=== PATIENT | female | born 1970 | race Caucasian/White ===

== ENCOUNTER → 2020-03-20 10:44 | Outpatient (CLI) | payer OTHER, MEDICAID, SELFPAY ==
[2020-03-20] MEDS: COVID-19 VACC(MODERNA-1)/PF 100 MCG/0.5 ML VIAL IM (10:50)
== END ==
PROVIDERS: Visit Provider Internal Medicine
DX: Z23 Encounter for immunization (principal)
CPT/HCPCS: 0011A; 91301

== ENCOUNTER → 2020-04-17 10:54 | Outpatient (CLI) | payer OTHER, MEDICAID, SELFPAY ==
[2020-04-17] MEDS: COVID-19 VACC #2, MRNA(MOD) 100 MCG/0.5 ML VIAL IM (11:02)
== END ==
PROVIDERS: Visit Provider Internal Medicine
DX: Z23 Encounter for immunization (principal)
CPT/HCPCS: 0012A; 91301